=== PATIENT | female | born 1935 | race Caucasian/White ===

== ENCOUNTER → 2018-05-14 | Outpatient (CLI) | payer OTHER, MEDICAID ==
[~2018-05-14] MED LIST: AMLODIPINE BESY10 MG PO; ASPIR 8181 MG PO; ASPIRIN EC81 M1 PO; ASPIRIN325 PO; CALCIUM 600 WI1 EAC2 PO; CATAPRES-TTS 10.1 MG TD; CELEXA 10 MG TA10 M1 PO; CLARITIN10 MG PO; CLONAZEPAM 0.50.5 M1 PO; CLONAZEPAM PO; CRANBERRY425 MG PO; FISH OIL 1,0001 EAC5 PO; FISHOIL PO; GLUCOSAMINE S1000 M3 PO; IMDUR 60 MG TAB60 MG PO; ISOSORBIDE MONO60 M1 PO; LIPITOR10 MG PO; LISINOPRIL20 MG PO; LISINOPRIL5 MG PO; MULTIVITAMINS PO; PACERONE 200 M200 M1 PO; PRADAXA75 MG PO; SAVAYSA30 MG PO; SORINE 80 MG TA80 M1 PO; TOPROL XL100 MG PO; TOPROL XL50 MG PO
[2018-05-14 12:02] VITALS: BP 107/60
[2018-05-14 12:05] LABS: HEMATOCRIT 36.4 % (37.0-47.0); HEMOGLOBIN 12.2 gm/dL (12.0-15.0); MCH 31.7 pg (26.0-34.0); MCHC 33.4 g/dL (28.0-37.0); MCV 94.9 fL (80.0-100.0); MPV 8.6 fl. (7.2-11.1); RBC 3.84 mil/uL (4.20-5.00); RDW-CV 13.1 % (10.5-14.5); WBC 7.7 thou/uL (4.0-11.0)
[2018-05-14 12:13] LABS: APTT 34.6 Seconds (25.0-31.3); INR 1.2; PROTIME 11.3 Seconds (9.20-11.50)
[2018-05-14 12:17] LABS: CALCIUM 8.2 mg/dL (8.5-10.1); CREATININE 1.5 mg/dL (0.6-1.3); POTASSIUM 4.3 mmol/L (3.5-5.1)
[2018-05-14 12:21] LABS: TOTAL BILIRUBIN 0.9 mg/dL (<0.1-1.0); TOTAL PROTEIN 6.8 g/dL (6.4-8.2)
[2018-05-14 12:30] VITALS: BP 124/63
[2018-05-14 12:33] VITALS: BP 120/58
[2018-05-14 12:36] VITALS: BP 116/65
[2018-05-14 12:43] VITALS: BP 101/52
[2018-05-14 13:03] VITALS: BP 91/50
--- NOTE | 2018-05-15 16:18 | CARD ---
[address] [address] CARDIAC CATH REPORT Name: LISBETH PAGAN Room: [facility]#: [id number] Admission: 05/14/18 Attend Phys: Huang Malin MD Discharge: Date of : 39 Report #: [id number] THIS REPORT FOR: //name// CC: Marty Parker DO Huang Malin PROCEDURE: DC cardioversion. INDICATION: Recurrent atrial flutter. DESCRIPTION OF PROCEDURE: After informed consent was obtained, the patient was brought to the cardiac holding area. The patient was placed on the land use planner and noted to be in persistent atrial flutter. The patient was sedated with 3 mg of intravenous Versed and 75 mg of intravenous fentanyl. After adequate sedation was achieved, the patient was cardioverted from atrial flutter to normal sinus rhythm with a single biphasic shock of 300 joules. The patient tolerated procedure well and without complication. IMPRESSION: 1. Persistent atrial flutter. 2. Successful DC cardioversion to normal sinus rhythm as outlined above. <ELECTRONICALLY SIGNED> By: Huang Malin MD, FACC 05/15/18 1618 1240 1754[facility] Campusdaniel Malin MD, FAC /
== END | disposition home or self-care (01) ==
LOC: M.CL 10:52
PROVIDERS: Internal Medicine Cardiovascular Disease
DX: I48.92 Unspecified atrial flutter (principal); I10 Essential (primary) hypertension; I48.91 Unspecified atrial fibrillation; Z90.711 Acquired absence of uterus with remaining cervical stump; Z90.49 Acquired absence of other specified parts of digestive tract; Z98.890 Other specified postprocedural states; Z79.01 Long term (current) use of anticoagulants; Z79.899 Other long term (current) drug therapy; Z88.8 Allergy status to other drugs, medicaments and biological substances; Z79.82 Long term (current) use of aspirin

== ENCOUNTER 2018-12-29 19:42 | Emergency (ER) | payer OTHER, MEDICAID ==
[~2018-12-29] VITALS: Ht 162.6 cm; Wt 79.4 kg
[2018-12-29 20:53] LABS: ABSOLUTE EOSINOPHILS 0.1 thou/uL (0.0-0.7); ABSOLUTE LYMPHOCYTES 1.1 thou/uL (0.8-5.3); ABSOLUTE MONOCYTES 0.5 thou/uL (0.0-1.2); ABSOLUTE NEUTROPHILS 4.7 thou/uL (1.6-8.1); BASOPHILS 0.3 %; EOSINOPHILS 1.7 %; HEMATOCRIT 36.3 % (37.0-47.0); HEMOGLOBIN 12.5 gm/dL (12.0-15.0); LYMPHOCYTES 17.5 %; MCH 32.1 pg (26.0-34.0); MCHC 34.4 g/dL (28.0-37.0); MCV 93.5 fL (80.0-100.0); MONOCYTES 8.3 %; MPV 9.3 fl. (7.2-11.1); NUCLEATED RBCS 0 /100WBC; PLATELET COUNT* 168 thou/uL (150-400); POLYS 72.2 %; RBC 3.88 mil/uL (4.20-5.00); RDW-CV 13.3 % (10.5-14.5); WBC 6.6 thou/uL (4.0-11.0)
[2018-12-29 20:57] LABS: PROTIME 10.4 Seconds (9.20-11.50)
[2018-12-29 21:10] LABS: ALBUMIN 2.8 g/dL (3.4-5.0); ALKALINE PHOSPHATASE 124 U/L (46-116); ANION GAP 8 mmol/L (7-16); BUN 23 mg/dL (7-18); CALCIUM 8.4 mg/dL (8.5-10.1); CHLORIDE 105 mmol/L (98-107); CO2 28 mmol/L (21-32); CREATININE 1.5 mg/dL (0.6-1.3); GLUCOSE 128 mg/dL (70-99); LIPASE 91 U/L (73-393); NT-PRO BRAIN NAT PEPTIDE 814 pg/mL (<300); SGOT 28 U/L (15-37); SGPT 28 U/L (30-65); SODIUM 141 mmol/L (136-145); TOTAL PROTEIN 6.9 g/dL (6.4-8.2); TROPONIN-I LEVEL <0.06 ng/mL (<0.06)
[2018-12-29 21:43] LABS: URINE BILIRUBIN NEGATIVE (Negative); URINE BLOOD NEGATIVE (Negative); URINE CLARITY CLEAR; URINE COLOR YELLOW; URINE GLUCOSE-RANDOM NEGATIVE (Negative); URINE KETONES NEGATIVE (Negative); URINE LEUKOCYTES-REFLEX NEGATIVE (Negative); URINE NITRITE-REFLEX NEGATIVE (Negative); URINE PROTEIN NEGATIVE (Negative); URINE UROBILINOGEN 0.2 E.U./dl (0.2-1.0)
[2018-12-29 23:00] VITALS: BP 151/74
--- NOTE | 2018-12-30 15:57 | EKG ---
[place] [address] ELECTROCARDIOGRAM REPORT Name: LISBETH PAGAN Room: [facility]#: [id number] Admission: 12/29/18 Attend Phys: Discharge: 12/29/18 Date of : 37 Report #: [id number] THIS REPORT FOR: //name// [facility] ED Test Date: 2018-12-29 Test Time: 19:53:52 Pat Name: LISBETH PAGAN Department: Room: Gender: F Boom Storage: Tanmay HAMILTON : 1935 Requested By: Dann Abdi Order Number: [id number] MD: Parish Villareal Measurements Intervals [place] Rate: 81 P: [place]: QRS: 21 QRSD: 79 T: 22 QT: 394 QTc: 458 Interpretive Statements Atrial fibrillation Abnormal R-wave progression, early transition Borderline ST depression, diffuse leads Compared to ECG 07/12/2015 10:40:48 Sinus bradycardia no longer present ST (T wave) deviation still present Electronically Signed On 12-30-2018 15:57:45 CDT by Parish Villareal [email or web address] <ELECTRONICALLY SIGNED> By: Parish Villareal MD, [facility] 12/30/18 1557 52 52 Parish Villareal MD, [facility] /EPI
== END 2018-12-29 23:02 | disposition home or self-care (01) ==
LOC: M.ERS 19:42
PROVIDERS: Emergency Medicine
DX: K52.9 Noninfective gastroenteritis and colitis, unspecified (principal); I10 Essential (primary) hypertension; I48.91 Unspecified atrial fibrillation; Z88.8 Allergy status to other drugs, medicaments and biological substances; Z90.49 Acquired absence of other specified parts of digestive tract; Z90.711 Acquired absence of uterus with remaining cervical stump

== ENCOUNTER → 2019-01-15 | Outpatient (CLI) | payer OTHER, MEDICAID ==
[2019-01-15] VITALS (7 sets, daily range): BP systolic 89–103; BP diastolic 39–65
[2019-01-15 09:38] LABS: HEMATOCRIT 36.9 % (37.0-47.0); HEMOGLOBIN 12.6 gm/dL (12.0-15.0); MCH 31.8 pg (26.0-34.0); MCV 93.5 fL (80.0-100.0); RBC 3.95 mil/uL (4.20-5.00); RDW-CV 13.7 % (10.5-14.5)
[2019-01-15 09:54] LABS: APTT 35.3 Seconds (25.0-31.3); INR 1.2; PROTIME 11.9 Seconds (9.20-11.50)
[2019-01-15 10:00] LABS: CREATININE 1.6 mg/dL (0.6-1.3); POTASSIUM 4.3 mmol/L (3.5-5.1)
--- NOTE | 2019-01-15 11:46 | EKG ---
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: : 1935 Requested By: Huang Malin Order Number: [id number] Reading MD: Parish Villareal Measurements Intervals [place] Rate: 66 P: [place]: QRS: 26 QRSD: 185 T: -43 QT: 489 QTc: 513 Interpretive Statements Atrial fibrillation Probable left ventricular hypertrophy Borderline prolonged QT interval Baseline wander in lead(s) III,aVF Compared to ECG 12/29/2018 19:53:52 ST (T wave) deviation no longer present Electronically Signed On 01-15-2019 11:46:13 CDT by Parish Villareal [email or web address] <ELECTRONICALLY SIGNED> By: Parish Villareal MD, [facility] 01/15/19 1146 0941 0941 Parish Villareal MD, [facility] /EPI
--- NOTE | 2019-01-22 17:43 | CARD ---
[address] [address] CARDIAC CATH REPORT Name: LISBETH PAGAN Room: [facility]#: [id number] Admission: 01/15/19 Attend Phys: Huang Malin MD Discharge: Date of : 39 Report #: [id number] THIS REPORT FOR: //name// CC: JONNA Khan INDICATION: Persistent atrial fibrillation. PROCEDURE: DC cardioversion. DESCRIPTION OF PROCEDURE: After informed consent was obtained, the patient was brought to the cardiac holding area. The patient was given 3 mg of Versed and 75 mg of fentanyl for conscious sedation. Once the patient was adequately sedated, she received a single biphasic shock of 300 joules converting to normal sinus rhythm. There were no complications. IMPRESSION: 1. Persistent atrial fibrillation. 2. Successful direct current cardioversion to normal sinus rhythm. <ELECTRONICALLY SIGNED> By: Huang Malin MD, FACC 01/22/19 1743 0910 Juli Malin MD, FAC /nt
== END | disposition home or self-care (01) ==
LOC: M.CL 08:45
PROVIDERS: Internal Medicine Cardiovascular Disease
DX: I48.1 Persistent atrial fibrillation (principal)

== ENCOUNTER → 2020-12-12 | Outpatient (CLI) | payer OTHER, MEDICAID | LOC: M.ULTRA 11-13 11:30 | PROVIDERS: ATTEND Internal Medicine Cardiovascular Disease | DX: I65.23 Occlusion and stenosis of bilateral carotid arteries (principal) ==

== ENCOUNTER 2021-01-02 09:34 | Observation (INO) | payer OTHER, MEDICAID ==
[~2021-01-02] VITALS: Ht 160 cm; Wt 81.6 kg
[2021-01-02] VITALS (11 sets, daily range): BP systolic 131–181; BP diastolic 67–86
[2021-01-02 10:43] LABS: HEMATOCRIT 38.3 % (37.0-47.0); HEMOGLOBIN 12.6 gm/dL (12.0-15.0); MCH 31.9 pg (26.0-34.0); MCHC 32.9 g/dL (28.0-37.0); MCV 96.9 fL (80.0-100.0); MPV 9.6 fl. (7.2-11.1); RBC 3.96 mil/uL (4.20-5.00)
[2021-01-02 10:52] LABS: ALBUMIN 3.2 g/dL (3.4-5.0); APTT 25.6 Seconds (25.0-31.3); CALCIUM 8.7 mg/dL (8.5-10.1); CREATININE 1.6 mg/dL (0.6-1.3); INR 0.9; POTASSIUM 4.3 mmol/L (3.5-5.1); TOTAL BILIRUBIN 1.2 mg/dL (<0.1-1.0); TOTAL PROTEIN 7.5 g/dL (6.4-8.2)
--- NOTE | 2021-01-02 14:06 | EKG ---
[place] [address] ELECTROCARDIOGRAM REPORT Name: LISBETH PAGAN Room: [address] M.R.#: [id number] Admission: 01/02/21 Attend Phys: Huang Malin, Discharge: Date of : 39 Date of Service: 01/02/21 1032 Report #: [id number] THIS REPORT FOR: //name// [facility] Test Date: 2021-01-02 Test Time: 10:32:43 Pat Name: LISBETH PAGAN Department: Room: [facility] Gender: F Member Service Representative: : 1935 Requested By: Huang Malin Order Number: [id number] Reading MD: Huang Malin Measurements Intervals [place] Rate: 68 P: [place]: QRS: 47 QRSD: 79 T: 37 QT: 391 QTc: 416 Interpretive Statements Atrial flutter with predominant 3:1 AV block Abnormal R-wave progression, early transition Minimal ST depression, anterolateral leads Compared to ECG 01/15/2019 09:41:08 ST (T wave) deviation now present Atrial fibrillation no longer present Electronically Signed On 01-02-2021 14:06:29 CDT by Huang Malin [email or web address] <ELECTRONICALLY SIGNED> By: Huang Malin MD, [facility] 01/02/21 1406 1032 1032 Huang Malin MD, [facility] /EPI
--- NOTE | 2021-01-02 14:45 | CARD ---
[address] [address] CARDIAC CATH REPORT Name: LISBETH PAGAN Room: [address] M.R.#: [id number] Admission: 01/02/21 Attend Phys: Huang Malin MD Discharge: Date of : 37 Report #: [id number] THIS REPORT FOR: cc: Marty Parker David DO Holkins, John M. MD [facility] ~ APPROVED REPORT Study performed: 01/02/2021 10:51:57 Patient Details The patient is a 85 year-old female Event Personnel Huang Malin Guest Services Agent, Robyn Parry RN RN, Rolan Amaro EFFICIENCY MINER Monitor, Wilver Parikh RTR ScrubDionna John It Portfolio Manager Procedures Performed Left heart catheterization left ventriculography selective coronary arteriography and PCI with deployment of drug-eluting stents in the ramus intermedius and LAD Indication Unstable angina Risk Factors Hypercholesterolemia Admission/Lab Medications/Medications given during procedure Angiomax bolus and infusion Procedure Narrative The patient was brought electively to the Cardiac Catheterization Laboratory and was prepped and draped in a sterile manner. The right femoral was infiltrated with 2% Lidocaine subcutaneous anesthesia. A [place] 6 FR sheath was inserted into the right femoral artery. Coronary angiography was performed using coronary diagnostic catheters. The right coronary system was accessed and visualized with a Diagnostic - JR4 catheter. The left coronary system was accessed and visualized with a Diagnostic - JL4 catheter. The left ventricle was accessed and visualized with a Diagnostic - Ang PIG catheter. Left ventricular/Aortic Valve gradient assessed via catheter pullback. Pre-demployment femoral angiogram [place] [address] CARDIAC CATH REPORT Name: LISBETH PAGAN Room: [address] M.R.#: [id number] Admission: 01/02/21 Attend Phys: Huang Malin MD Discharge: Date of : 37 Report #: [id number] device was deployed with a Fr Angioseal STS 6Fr. The patient tolerated the procedure well and there were no complications associated with the procedure. There was no hematoma. Intraoperative Conscious Sedation Sedation start time: 1109 Case end Time: 1200 Fentanyl 25 mcg Versed 1 mg Fluoro Time: 11.4 minutes Dose: DAP [id number] cGycm2 2034 mGy Contrast Type and Amount: Visipaque 280 ml Diagnostic Cath Left Main 0% narrowing LAD 75% tubular proximal LAD narrowing with 40% mid vessel narrowing Circumflex Nondominant vessel with 100% mid vessel occlusion and left to left collaterals filling the distal circumflex in retrograde fashion Right Coronary Dominant vessel with 30% proximal mid and distal narrowings Ramus 90% tubular narrowing of the proximalmidportion of this moderate size vessel Left Ventriculography The left ventricle is normal in size with normal contractility. The left ventricular ejection fraction is estimated to be 60-65%. Left ventricular wall motion abnormalities are not present. There is no mitral insufficiency. Hemodynamics The aortic pressure is 129/60 mmHg with a mean of 51 mmHg. The left ventricular pressure is 142/3 mmHg with a mean of mmHg. The left ventricular end diastolic pressure is 16 mmHg. There was no gradient across the aortic valve upon pullback. PCI Technique Lesion Anticoagulation was achieved with Angiomax. Patient was preloaded with Angiomax IV 12 ml. Percutaneous coronary intervention was performed on the ramus intermedius segment. The lesion stenosis prior to intervention was 90% with VALERIE 3 flow. A 6F XB LAD 3.5 Guide Catheter was used to engage the ostium. A IG: BMW 190cm Interventional Guidewire [place] [address] CARDIAC CATH REPORT Name: JOSHUABLAKEMkLISBETH FLETCHER [address] [id number] Admission: 01/02/21 Attend Phys: Huang Malin MD Discharge: Date of : 37 Report #: [id number] BALLOON DILATION A Balloon catheter Mini Trek RX 2.0 X 15 was inserted and inflated up to 10.00atm for 10seconds. Additional Inflation: 10.00atm for 6seconds. STENT DEPLOYMENT A stent Vince RX Stent 2.0X18mm was inserted and inflated up to 10.00atm for 4seconds. Additional Inflation: 10.00atm for 5seconds. Final angiography reveals 0 % stenosis with VALERIE 3 flow. PCI Technique Lesion 2 Percutaneous Coronary Intervention was performed on the proximal left anterior descending artery segment. Patient was preloaded with Angiomax IV 12 ml. The lesion stenosis prior to intervention was 75% with VALERIE 3 flow. A 6F XB LAD 3.5 Guide Catheter was used to engage the ostium. A IG: ProwaterFlex 180CM Interventional Guidewire was used to cross the lesion. Balloon Dilation A Balloon catheter Trek RX 2.5 X 12 was inserted and inflated up to 12.00atm for 9seconds. Additional Inflation: 12.00atm for 10seconds. Stent Deployment A stent [place] RX Stent 2.23G26cn was inserted and inflated up to 12.00atm for 8seconds. Additional Inflation: 15.00atm for 10seconds. Final angiography reveals 10 % stenosis with VALERIE 3 flow. Conclusion 1. Significant coronary artery disease characterized by the following: A 75% tubular proximal LAD narrowing with 40% mid vessel narrowing B 90% tubular stenosis of the proximalmidportion of the ramus intermedius C total occlusion of the nondominant circumflex in its midportion with left to left collaterals [place] [address] CARDIAC CATH REPORT Name: LISBETH PAGAN Room: [address] M..#: [id number] Admission: 01/02/21 Attend Phys: Huang Malin MD Discharge: Date of : 37 Report #: [id number] D dominant right coronary artery with 30% proximal mid and distal narrowings 2. Mild elevation of left ventricular and diastolic pressure at rest 3 normal left ventricular systolic function, estimated ejection fraction being 60-65% 4. Successful PCI with deployment of drug-eluting stent at site of 90% tubular proximalmid ramus intermedius stenosis with 0% residual narrowing and VALERIE-3 flow to the distal vessel 5. Successful PCI with deployment of drug-eluting stent at the site of 75% tubular proximal LAD stenosis with 10% residual narrowing and VALERIE-3 flow to the distal vessel Recommendations Cardiac Risk Reduction Program Aggressive Medical Therapy Medications Administered Aspirin (any) Prasugrel Diagnostic Cath Approved by: Huang Malin MD Date/Time: 01/02/2021 14:40:20 <ELECTRONICALLY SIGNED> By: Parish Villareal MD, [facility] 01/02/21 1445 1445 1445Parish Villareal MD, FAC /INF
[2021-01-03 00:36] VITALS: BP 139/74
[2021-01-03 04:30] LABS: HEMATOCRIT 33.4 % (37.0-47.0); HEMOGLOBIN 11.4 gm/dL (12.0-15.0); MCH 32.2 pg (26.0-34.0); MCHC 34.2 g/dL (28.0-37.0); MPV 8.8 fl. (7.2-11.1); RBC 3.55 mil/uL (4.20-5.00); RDW-CV 12.9 % (10.5-14.5); WBC 9.4 thou/uL (4.0-11.0)
[2021-01-03 04:57] LABS: ALBUMIN 2.7 g/dL (3.4-5.0); CALCIUM 8.2 mg/dL (8.5-10.1); CK-MB MASS 4.5 ng/mL (<0.5-3.6); CREATININE 1.4 mg/dL (0.6-1.3); POTASSIUM 4.5 mmol/L (3.5-5.1); TOTAL BILIRUBIN 1.7 mg/dL (<0.1-1.0); TOTAL PROTEIN 6.4 g/dL (6.4-8.2)
[2021-01-03 05:07] VITALS: BP 137/60
[2021-01-03 08:00] VITALS: BP 118/64
--- NOTE | 2021-01-03 09:28 | EKG ---
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 Editor: : 1935 Requested By: Huang Malin Order Number: [id number] Reading MD: Jim Soler Measurements Intervals [place] Rate: 74 P: CT: QRS: 64 QRSD: 116 T: 27 QT: 395 QTc: 439 Interpretive Statements Atrial flutter Nonspecific intraventricular conduction delay Borderline ST depression, diffuse leads Compared to ECG 01/02/2021 10:32:43 Intraventricular conduction delay now present AV block, advanced (high-grade) no longer present ST (T wave) deviation still present Electronically Signed On 01-03-2021 9:27:57 CDT by Jim Soler [email or web address] <ELECTRONICALLY SIGNED> By: Ghanshyam Soler MD, [facility] 01/03/21 09 00 00 Ghanshyam Soler MD, [facility] /EPI
--- NOTE | 2021-01-03 09:32 | EKG ---
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 : 1935 Requested By: Huang Malin Order Number: [id number] Reading MD: Jim Soler Measurements Intervals [place] Rate: 91 P: 113 MS: 118 QRS: 45 QRSD: 84 T: 69 QT: 363 QTc: 447 Interpretive Statements Sinus rhythm Borderline short MS interval Anteroseptal infarct, age indeterminate Compared to ECG 01/02/2021 17:01:54 Myocardial infarct finding now present Atrial flutter no longer present Intraventricular conduction delay no longer present ST (T wave) deviation no longer present Electronically Signed On 01-03-2021 9:32:12 CDT by Jim Soler [email or web address] <ELECTRONICALLY SIGNED> By: Ghanshyam Soler MD, [facility] 01/03/21931 3 3 Ghanshyam Soler MD, [facility] /EPI
[2021-01-03] MEDS ORDERED: EFFIENT10 MG PO (09:34)
[2021-01-03 10:11] VITALS: BP 132/75
[2021-01-03 11:01] VITALS: BP 132/75
--- NOTE | 2021-01-04 13:56 | D ---
[address] [address] DISCHARGE SUMMARY Name: LISBETH PAGAN Room: [address] Abraham#: [id number] Admission: 01/02/21 Attend Phys: Huang Malin MD Discharge: 01/03/21 Date of : 37 Report #: [id number] THIS REPORT FOR: cc: Marty Parker David DO Liston,Huang [place] MD [facility] ~ DATE OF SERVICE: 01/03/2021 DIAGNOSES: 1. Unstable angina. 2. Coronary artery disease. 3. Paroxysmal atrial fibrillation/flutter. 4. Chronic anticoagulation. 5. Hypercoagulable state due to atrial fibrillation/flutter. PROCEDURES DURING HOSPITALIZATION: 1. Left heart catheterization. 2. Coronary angiography. 3. Left ventriculography. 4. Percutaneous coronary intervention to the intermediate ramus and proximal LAD arteries with drug-eluting stent placement. HOSPITAL COURSE: The patient was admitted to the hospital electively for coronary angiography. She was found to have critical stenosis involving the proximal portion of an intermediate ramus branch as well as the proximal left anterior descending coronary artery. The patient underwent drug-eluting stent placement to both sites with excellent result. The patient tolerated the procedure well without complication. The patient was observed overnight and discharged uneventfully the following day. DISCHARGE MEDICATIONS: Lisinopril 20 mg p.o. daily, Savaysa 30 mg p.o. daily, Imdur 60 mg p.o. daily, Effient 10 mg p.o. daily, atorvastatin 10 mg at bedtime, metoprolol succinate 100 mg b.i.d., sotalol 120 mg p.o. b.i.d., clonidine 0.1 mg transdermal patch weekly, clonazepam 0.5 mg p.o. b.i.d., Nitrostat 0.4 mg sublingual p.r.n. The patient's aspirin will be held while taking Effient. DISPOSITION: The patient will follow up in the Cardiology Clinic in 2 weeks. <ELECTRONICALLY SIGNED> By: Huang Malin MD, FACC 01/04/21 1356 0939 0954Micdaniel Malin MD, FAC /nt
== END 2021-01-03 11:30 | disposition home or self-care (01) ==
LOC: M.CL 09:34 → M.2W 11:29 → M.TBA-CV 11:29 → M.2W 12:27
PROVIDERS: ADMIT Internal Medicine Cardiovascular Disease; ATTEND Internal Medicine Cardiovascular Disease
DX: I25.110 Atherosclerotic heart disease of native coronary artery with unstable angina pectoris (principal); I48.0 Paroxysmal atrial fibrillation; I48.92 Unspecified atrial flutter; D68.69 Other thrombophilia; Z79.01 Long term (current) use of anticoagulants; Z79.82 Long term (current) use of aspirin; Z79.899 Other long term (current) drug therapy

== ENCOUNTER → 2021-01-17 | Outpatient (CLI) | payer OTHER, MEDICAID ==
[~2021-01-17] MED LIST changes: +EFFIENT10 MG PO
== END ==
LOC: M.RAD 13:16
PROVIDERS: ATTEND Internal Medicine Cardiovascular Disease
DX: I25.10 Atherosclerotic heart disease of native coronary artery without angina pectoris (principal)

== ENCOUNTER → 2021-04-17 | Outpatient (CLI) | payer OTHER, MEDICAID ==
--- NOTE | 2021-04-17 13:16 | 2DMMODE ---
[place] [address] 2 D/M-MODE ECHOCARDIOGRAM Name: LISBETH PAGAN Room: [facility]#: [id number] Admission: 04/17/21 Attend Phys: Gordon Brown Discharge: Date of : 39 Date of Service: 04/17/21 1316 Report #: [id number] THIS REPORT FOR: cc: Oswaldo Claire,Oswaldo Sky,Huang [place] MD [facility] ~ APPROVED REPORT Study performed: 04/17/2021 11:11:40 EXAM: Comprehensive 2D, Doppler, and color-flow Echocardiogram Patient Location: Out-Patient BSA: 1.83 HR: 64 bpm BP: 110/68 mmHg Other Information Study Quality: Good Indications A-flutter 2D Dimensions IVSd: 11.48 (7-11mm) LVOT Diam: 20.35 (18-24mm) LVDd: 36.43 mm PWd: 10.48 (7-11mm) Ascending Ao: 23.88 (22-36mm) LVDs: 23.52 (25-40mm) Aortic Root: 29.17 mm Volumes Left Atrial Volume (Systole) LA ESV Index: 18.50 mL/m2 Aortic Valve AoV Peak Nazario.: 1.02 m/s AO Peak Gr.: 4.15 mmHg LVOT Max P.67 mmHg AO Mean Gr.: 2.37 mmHg LVOT Mean P.79 mmHg LVOT Max V: 0.65 m/s AO V2 VTI: 19.22 cm LVOT Mean V: 0.40 m/s ZACK (VTI): 2.33 cm2 LVOT V1 VTI: 13.76 cm Mitral Valve E/A Ratio: 4.83 [place] [address] 2 D/M-MODE ECHOCARDIOGRAM Name: LISBETH PAGAN Room: [facility]#: [id number] Admission: 04/17/21 Attend Phys: Gordon Brown Discharge: Date of : 39 Date of Service: 04/17/21 1316 Report #: [id number] MV Decel. Time: 155.40 ms MV E Max Nazraio.: 0.92 m/s MV PHT: 45.06 ms MVA (PHT): 4.88 cm2 TDI E/Lateral E': 13.14 E/Medial E': 7.08 Medial E' Nazario.: 0.13 m/s Lateral E' Nazario.: 0.07 m/s Pulmonary Valve PV Peak Nazario.: 0.85 m/s PV Peak Gr.: 2.91 mmHg Tricuspid Valve RAP Estimate: 5.00 mmHg TR Peak Gr.: 34.42 mmHg RVSP: 39.42 mmHg PA Pressure: 39.42 mmHg Left Ventricle The left ventricle is normal size. There is normal LV segmental wall motion. There is normal left ventricular wall thickness. Left ventricular systolic function is normal. LVEF is 55-60%. This study is not technically sufficient to allow evaluation of the LV diastolic function due to atrial fibrillation. Right Ventricle The right ventricle is normal size. The right ventricular systolic function is normal. Atria Left atrium is moderately dilated. Right atrium is moderately dilated. Aortic Valve Mild aortic valve sclerosis. No aortic regurgitation is present. There is no aortic valvular stenosis. Mitral Valve The mitral valve is normal in structure. Mild mitral regurgitation. No evidence of mitral valve stenosis. Tricuspid Valve The tricuspid valve is normal in structure. Mild tricuspid regurgitation. The RVSP is 40-45 [place] [address] 2 D/M-MODE ECHOCARDIOGRAM Name: LISBETH PAGAN Room: [facility]#: [id number] Admission: 04/17/21 Attend Phys: Gordon Chamberlainnnarvind Discharge: Date of : 39 Date of Service: 04/17/21 1316 Report #: [id number] The pulmonary valve is normal in structure. There is no pulmonic valvular regurgitation. Great Vessels The aortic root is normal in size. IVC is normal in size and collapses >50% with inspiration. Pericardium There is no pericardial effusion. <Conclusion> The left ventricle is normal size. There is normal left ventricular wall thickness. Left ventricular systolic function is normal. LVEF is 55-60%. This study is not technically sufficient to allow evaluation of the LV diastolic function due to atrial fibrillation. Left atrium is moderately dilated. Right atrium is moderately dilated. Mild aortic valve sclerosis. Mild mitral regurgitation. Mild tricuspid regurgitation. The RVSP is 40-45 mmHg. IVC is normal in size and collapses >50% with inspiration. <ELECTRONICALLY SIGNED> By: Huang Malin MD, FACC 04/17/21 1316 1316 1316 Huang Malin MD, FACC /INF
== END ==
LOC: M.CRD 11:00
PROVIDERS: ATTEND Internal Medicine Cardiovascular Disease
DX: I08.1 Rheumatic disorders of both mitral and tricuspid valves (principal); I48.92 Unspecified atrial flutter; R55 Syncope and collapse